=== PATIENT | female | born 1945 | race Caucasian/White ===

== ENCOUNTER 2022-06-13 22:55 | Emergency (ER) | payer MEDICARE | END 2022-06-13 23:44 | disposition home or self-care (01) | LOC: ED 22:55 | DX: S91.011A Laceration without foreign body, right ankle, initial encounter (principal); W26.8XXA Contact with other sharp object(s), not elsewhere classified, initial encounter; Y93.89 Activity, other specified; Y92.89 Other specified places as the place of occurrence of the external cause; Y99.8 Other external cause status ==

== ENCOUNTER 2023-02-21 20:16 | Emergency (ER) | payer MEDICARE ==
[~2023-02-21] VITALS: Ht 157.4 cm; Wt 131.5 kg
[2023-02-21 20:47] LABS: BASO # 0.1 10*3/uL (0.0-0.1); BASO % 0.6 % (0.0-1.0); EOS # 0.2 10*3/uL (0.0-0.4); EOS % 2.9 % (1.0-4.0); HEMATOCRIT 39.5 % (37.0-47.0); LYMPH # 2.3 10*3/uL (1.3-4.4); LYMPH % 29.7 % (27.0-41.0); MEAN CELL VOLUME 90.6 fl (81.0-99.0); MEAN CORPUSCULAR HGB 30.7 pg (27.0-31.0); MEAN CORPUSCULAR HGB CONC 33.9 g/dl (33.0-37.0); MEAN PLATELET VOLUME 9.7 fl (9.6-12.3); MONO # 0.8 10*3/uL (0.1-1.0); MONO % 9.9 % (3.0-9.0); NEUT # 4.4 10*3/uL (2.3-7.9); NEUT % 56.6 % (47.0-73.0); PLATELET COUNT AUTOMATED 225 10*3/uL (130-400); RED BLOOD COUNT 4.36 10*6/uL (4.10-5.10); RED CELL DISTRI WIDTH 13.2 % (0-14.5); WHITE BLOOD COUNT 7.8 10*3/uL (4.8-10.8)
[2023-02-21 21:13] LABS: ALKALINE PHOSPHATASE 106 U/L (46-116); BUN 15 mg/dl (9-23); CHLORIDE 105 mmol/L (98-107); SGPT/ALT 25 U/L (10-49); TOTAL PROTEIN 7.2 gm/dL (6.0-8.0)
[2023-02-21] MEDS ORDERED: METOPROLOL SUC100 M1 PO (21:29)
[2023-02-21] MEDS ORDERED: DIOVAN320 MG PO (21:30)
[2023-02-21] MEDS ORDERED: ASPIRIN ADULT L81 M1 PO (21:30)
[2023-02-21] MEDS ORDERED: MULTI-VITAMIN1 EACH PO (21:30)
== END 2023-02-21 22:28 | disposition home or self-care (01) ==
LOC: ED 20:16
PROVIDERS: Physician Assistant Medical
DX: I82.401 Acute embolism and thrombosis of unspecified deep veins of right lower extremity (principal); Z79.899 Other long term (current) drug therapy; Z79.82 Long term (current) use of aspirin

== ENCOUNTER → 2023-02-22 | Outpatient (CLI) | payer MEDICARE ==
[~2023-02-22] MED LIST: ASPIRIN ADULT L81 M1 PO; DIOVAN320 MG PO; METOPROLOL SUC100 M1 PO; MULTI-VITAMIN1 EACH PO
== END | disposition home or self-care (01) ==
LOC: US 08:54
PROVIDERS: ATTEND Physician Assistant Medical
DX: M79.661 Pain in right lower leg (principal)